=== PATIENT | male | born 1965 ===

== ENCOUNTER 2018-06-06 15:10 | Inpatient (IN) | payer MEDICAID ==
[2018-06-06 15:24] VITALS: BMI 26.6
[2018-06-06 17:08] LABS: BASO % 0.8 % (0.0-2.0); EOS # 0.1 K/uL (0.0-0.7); EOS % 2.1 % (0.0-4.0); HEMOGLOBIN 13.1 g/dL (12.0-18.0); LYMPH # 1.8 K/uL (1.0-4.3); LYMPH % 31.5 % (20.0-40.0); MEAN CELL VOLUME 91.2 fL (80.0-94.0); MEAN CORPUSCULAR HEMOGLOBIN 31.2 pg (27.0-31.0); MEAN CORPUSCULAR HGB CONC 34.2 g/dL (33.0-37.0); MEAN PLATELET VOLUME 7.9 fL (7.2-11.7); MONO # 0.4 K/uL (0.0-0.8); MONO % 6.1 % (0.0-10.0); NEUT # 3.5 K/uL (1.8-7.0); NEUT % 59.5 % (50.0-75.0); RBC 4.21 Mil/uL (4.40-5.90); RED CELL DISTRIBUTION WIDTH 13.8 % (11.5-14.5); WHITE BLOOD COUNT 5.9 K/uL (4.8-10.8)
[2018-06-06 17:09] LABS: SQUAMOUS EPITHIAL < 1 /hpf (0-5); URINE BACTERIA RARE (<OCC); URINE BILIRUBIN NEGATIVE (NEGATIVE); URINE BLOOD NEGATIVE (NEGATIVE); URINE CALCIUM OXALATE CRYSTALS OCC /hpf (<OCC); URINE CLARITY Clear (Clear); URINE COLOR Yellow (YELLOW); URINE GLUCOSE (UA) NORMAL (Normal); URINE LEUKOCYTE ESTERASE NEG Leu/uL (Negative); URINE PROTEIN NEGATIVE (NEGATIVE)
[2018-06-06 17:20] LABS: ALB/GLOB RATIO 1.4 (1.0-2.1); ALBUMIN 4.2 g/dL (3.5-5.0); ALT/SGPT 19 U/L (21-72); AST/SGOT 20 U/L (17-59); BLOOD UREA NITROGEN 18 mg/dL (9-20); GFR NON-AFRICAN AMERICAN > 60
[2018-06-06 17:36] LABS: BARBITURATES, UR NEGATIVE (NEGATIVE); BENZODIAZEPINES, UR NEGATIVE (NEGATIVE); PHENCYCLIDINE, UR NEGATIVE (NEGATIVE)
[2018-06-06 17:41] LABS: OPIATES, UR POSITIVE (NEGATIVE)
--- NOTE | 2018-06-06 18:13 | C.PDOC ---
History Of Present Illness 52 y/o male presents to ED requesting detox from heroin, admits to using 10-15 bags daily nasally. Patient has history of bipolar disorder and is non compliant with medication. Patient denies SI/HI, hallucinations or any other physical complaints at this time. Chief Complaint (Nursing): Substance Abuse History Per: Patient History/Exam Limitations: no limitations Onset/Duration Of Symptoms: Days Current Symptoms Are (Timing): Still Present Suicide/Self Injury Attempted (Context): None Modifying Factor(s): Other (heroin) Past Medical History Reviewed: Historical Data, Nursing Documentation, Vital Signs Vital Signs: Last Vital Signs Temp 97.3 F L 06/06/18 15:24 Pulse 63 06/06/18 15:24 Resp 18 06/06/18 15:24 BP 150/62 06/06/18 15:24 Pulse Ox 99 06/06/18 15:24 - Medical History PMH: Asthma Surgical History: No Surg Hx Family History: States: No Known Family Hx - Social History Hx Alcohol Use: Yes Hx Substance Use: Yes (heroin) - Immunization History Hx Tetanus Toxoid Vaccination: No Hx Influenza Vaccination: No Review Of Systems Constitutional: Negative for: Fever, Chills Cardiovascular: Negative for: Chest Pain Respiratory: Negative for: Cough Gastrointestinal: Negative for: Nausea, Vomiting Psych: Positive for: Other (substance abuse). Negative for: Depression, Suicidal ideation Physical Exam - Physical Exam Appears: Non-toxic, No Acute Distress Skin: Warm, Dry, No Rash Head: Atraumatic, Normacephalic Eye(s): bilateral: Normal Inspection Oral Mucosa: Moist Neck: Normal ROM, Supple Cardiovascular: Rhythm Regular Respiratory: Normal Breath Sounds, No Rales, No Rhonchi, No Wheezing Gastrointestinal/Abdominal: Soft, No Tenderness, No Guarding, No Rebound Neurological/Psych: Oriented x3, Normal Speech, Normal Cognition ED Course And Treatment - Laboratory Results Result Diagrams: 06/06/18 17:01 06/06/18 17:01 O2 Sat by Pulse Oximetry: 99 (RA) Pulse Ox Interpretation: Normal Progress Note: Patient medically cleared for detox. Disposition - Disposition Disposition Time: 19:00 Condition: STABLE Forms: [facility] (Luxembourgish) - Clinical Impression Clinical Impression: Drug dependence, Drug abuse - Scribe Statement The provider has reviewed the documentation as recorded by the Scribtejas Damian All medical record entries made by the Scribe were at my direction and personally dictated by me. I have reviewed the chart and agree that the record accurately reflects my personal performance of the history, physical exam, medical decision making, and the department course for this patient. I have also personally directed, reviewed, and agree with the discharge instructions and disposition.
--- NOTE | 2018-06-06 21:07 | PCM.BM ---
<ShonJaci - Last Filed: 06/06/18 21:56> Treatment Plan Problems - Problems identified on initial assessmt Ineffective Health Maintenance Date Initiated: 06/06/18 Time Initiated: 21:07 Assessment reference: NA Status: Active Treatment assets and liabiliti Patient Assests: cooperative, ADL independent, negotiates basic needs, cognitively intact Patient Liabilities: substance abuse (Opiates , cocaine) - Milieu Protocol Maintain good personal hygiene: daily Encourage regular showers, daily Remind patient to perform daily oral care, daily Assist patient to perform ADL's Conduct patient checks and document Observation sheet: Q15 minutes Maintain personal safety: every shift Educate patient to report safety concerns to staff, every shift Monitor environment for contraband/sharps Medication safety: Monitor for expected outcome, potential side effects: every shift, Assess barriers to learning: every shift, Assess readiness for medication education: every shift <Karla Chavez - Last Filed: 06/07/18 11:07> Treatment Plan Problems - Problems identified on initial assessmt Ineffective Health Maintenance Date Initiated: 06/06/18 Time Initiated: 21:07 Assessment reference: NA Status: Active Potential for opiate withdrawal Date Initiated: 06/06/18 Time Initiated: 21:07 Assessment reference: NA Status: Active Family Contact Family involvement: No known Family/SO - Goals for Treatment Patient goals for treatment: Complete detox and transition to inpatient rehab. Discharge/Continuing Care - Education Needs Education Needs: Patient Medication, Patient Diagnosis/Disease Process, Patient Coping Skills, Patient Anger Management skills, Patient Placement options, Patient Community resources, Patient Other (mental health/meds stabilization) - Discharge Discharge Criteria: Ability to care for self, No longer exhibiting s/s of withdrawal, Reduction of target symptoms Discharge to:: Substance Abuse Rehab - Treatment Team Participation Patient/Family/SO Statement: 06/07/18 11:07 "I wanna go to an inpatient program. I gotta stop this..." Discussed with Family/SO: No Was Patient/Family/SO present at Treatment Team Meeting: Yes
--- NOTE | 2018-06-07 14:07 | PCM.PSYCH ---
Initial Psychiatric Evaluation - Initial Psychiatric Evaluation Type of Admission: Voluntary Legal Status: Capacity History of Present Illness and Precipitating Events: Patient seen, chart reviewed, case discussed The patient is a single, unemployed, homeless male with no children who lives in a longterm. The patient has been unemployed for a couple years, and has been boogie-handling. The patient has been sniffing 10-15 bags of heroin per day for the past 20+ years, with his last use yesterday 2 pm. The patient has been sniffing 5 bottles of cocaine a couple times per week for the past 10 years. The patient smokes marijuana about once a month and smokes 8 cigarettes per day for the past 41 years, but denies any history of alcohol or other drug use. The patient has never been to detox or rehab in the past. The patients brother and nephew have a history of alcohol and pill abuse. The patient states that he has been diagnosed with Bipolar or Schizoaffective d/o. The patient has been hearing voices on and off for a long time telling him to give up and kills himself, last heard voices recently. The patient feels like people are after him and following him but doesnt ever see anyone. He is aware that these are symptoms and not real. Past Psych History: As above - The patient has been hospitalized for psychiatric problems many times in the past, with the last a couple months ago. The patient states that his symptoms disappear when he is taking his medications when he is in the hospital. The patient states that he currently depressed but denies suicidal ideations. The patient has attempted suicide once 6 years ago when he intentionally overdosed. Past Medical History: Asthma Family Psych History: Brother has Bipolar Disorder and alcohol and some pill dependence. Current Medications: Active Medications Generic Name Dose Route Start Last Admin Trade Name Freq PRN Reason Stop Dose Admin Acetaminophen 650 mg 06/07/18 00:40 Tylenol 325mg Tab PO Q6 PRN Pain, moderate (4-7) Aripiprazole 5 mg 06/07/18 10:30 06/07/18 10:53 Abilify PO 5 mg DAILY HARRY Administration Dicyclomine HCl 10 mg 06/07/18 08:52 Bentyl PO Q6 PRN Muscle spasm Escitalopram Oxalate 5 mg 06/07/18 10:30 06/07/18 10:53 Lexapro PO 5 mg DAILY HARRY Administration Ibuprofen 600 mg 06/06/18 22:10 06/06/18 22:22 Motrin Tab PO 600 mg Q6 PRN Administration Pain Influenza Virus Vaccine 60 mcg 06/08/18 09:00 Fluzone Quad [id number] IM 06/08/18 09:01 .ONCE ONE Methadone HCl 15 mg 06/07/18 10:00 06/07/18 10:15 Methadone PO 06/10/18 09:59 15 mg Q24H HARRY Administration Taper Ondansetron HCl 4 mg 06/07/18 08:51 06/07/18 10:16 Zofran Odt PO 4 mg Q6H PRN Administration Nausea/Vomiting Pneumococcal Polyvalent Vaccine 0.5 ml 06/08/18 09:00 Pneumovax 23 Vaccine IM 06/08/18 09:01 .ONCE ONE Quetiapine Fumarate 50 mg 06/07/18 22:00 Seroquel PO HS HARRY Past Psychiatric History - Past Psychiatric History Previous Treatment History: Intensive Outpatient Pertinent Medical Hx (Current Medical&Sleep Prob, Allergies): Allergies Allergy/AdvReac Type Severity Reaction Status Date / Time No Known Allergies Allergy Verified 06/06/18 15:23 No Known Home Med 06/06/18 Review of Systems - Psychiatric Psychiatric: Abnormal Sleep Pattern, Anhedonia, Anxiety, Auditory Hallucinations, Depression, Difficulty Concentrating, Hallucinations, Irritability, Mood Swings, Paranoia. absent: Homicidal Ideation, Suicidal Ideation Mental Status Examination - Personal Presentation Personal Presentation: Looks stated age - Affect Affect: Constricted - Motor Activity Motor Activity: Calm - Reliability in Providing Information Reliability in Providing Information: Good - Speech Speech: Organized - Mood Mood: Depressed, Anxious - Formal Thought Process Formal Thought Process: Hallucinations, Paranoia - Cognitive Functions Orientation: Person, Place, Situation Sensorium: Alert Attention/Concentration: Easily distracted Estimate of Intelligence: Average Judgement: Intact, as evidence by: Insight regarding need for hospitalization Memory: Recent intact, as evidence by: Ability to recall events of the day, Remote intact, as evidenced by: Abilit to recall sig. life events - Risk Risk: Withdrawal, Diminished functioning - Strength & Assets Inventory Strength & Assets Inventory: Cooperative - Limitations Limitations: Living alone DSM 5 DX - DSM 5 DSM 5 Diagnosis: Opioid withdrawal Cocaine withdrawal Opioid use d/osevere Cocaine use d/osevere Schizoaffective Disorder - unspecified - Recommended/Plan of Treatment Treatment Recommendations and Plan of Treatment: Taper with Methadone Gabapentin for augmentation if needed Lexapro and abilify for schizoaffective d/o As needed medication All risks, benefits and alternatives of the meds discussed and the patient agreed and understood Attend groups and activities Supportive therapy and psychoeducation MA for abstinence CBT for relapse prevention Encourage MAT Refer to rehab or IOP, and self-help groups Teach healthy lifestyle methods, i.e. diet, exercise, meditation Smoking cessation with MA Nicotine patch if needed 35 min Projected ELOS: 4 days - Smoking Cessation Smoking Cessation Initiated: Yes
[2018-06-08] MEDS ORDERED: Pneumococcal 23-Valent Vaccine IM ONE (09:00)
[2018-06-08] MEDS ORDERED: Influenza Vaccine 60 MCG/0.5 ML SYR (3 yr & up) IM ONE (09:00)
--- NOTE | 2018-06-09 23:57 | PCM.PYCHPN ---
Psychiatric Progress Note - Psychiatric Progress Note Patient seen today, length of contact: 16 min Patient Chief Complaint: "I don't feel well" Problems Identified/Issues Discussed: The pt is seen, chart reviewed, case discussed with staff. Support and psychoeducation given No SEs from medications, risks discussed. After care discussed - He was referred to [facility] but no one called back yet Meanwhile he says he feels depressed and at times suicidal He still on and off hears voices to tell him to kill self He doesn't feel safe leaving the hospital Medication Change: Yes (meds adjusted) Medical Record Reviewed: Yes Mental Status Examination - Cognitive Function Orientation: Person, Place, Situation Memory: Impaired Attention: Poor Concentration: Poor Association: WNL Fund of Knowledge: Poor - Mood Mood: Depressed, Anxious - Affect Affect: Constricted - Speech Speech: Appropriate - Formal Thought Process Formal Thought Process: Hallucinations, Paranoia - Suicidal Ideation Suicidal Ideation: No - Homicidal Ideation Homicidal Ideation: No Goal/Treatment Plan - Goal/Treatment Plan Need for Continued Stay: Severe depression anxiety, Discharge may exacerbated symptoms, Severe functional impairment Progress Toward Problem(s) and Goals/Treatment Plan: Taper with Methadone Gabapentin for augmentation if needed Lexapro and abilify for schizoaffective d/o As needed medication All risks, benefits and alternatives of the meds discussed and the patient agreed and understood Attend groups and activities Supportive therapy and psychoeducation [place] for abstinence CBT for relapse prevention Encourage MAT Refer to rehab or IOP, and self-help groups Teach healthy lifestyle methods, i.e. diet, exercise, meditation Smoking cessation with MS Nicotine patch if needed Transfer to 5-E Pt agreed
--- NOTE | 2018-06-09 23:59 | PCM.PYCHPN ---
Psychiatric Progress Note - Psychiatric Progress Note Patient seen today, length of contact: 15 min Patient Chief Complaint: "I'm not good" Problems Identified/Issues Discussed: The pt is seen, chart reviewed, case discussed with staff. The pt is compliant with medications and reports no side-effects. Symptoms are improving but needs more time to stabilize. Pt attends groups and activities. Support given, psycho-education provided. After care discussed. Straight and Narrow Medication Change: Yes (meds adjusted) Medical Record Reviewed: Yes Mental Status Examination - Cognitive Function Orientation: Person, Place, Situation Memory: Impaired Attention: Poor Concentration: Poor Association: WNL Fund of Knowledge: Poor - Mood Mood: Depressed, Anxious - Affect Affect: Constricted - Speech Speech: Appropriate - Formal Thought Process Formal Thought Process: Hallucinations, Paranoia - Suicidal Ideation Suicidal Ideation: No - Homicidal Ideation Homicidal Ideation: No Goal/Treatment Plan - Goal/Treatment Plan Need for Continued Stay: Severe depression anxiety, Discharge may exacerbated symptoms, Severe functional impairment Progress Toward Problem(s) and Goals/Treatment Plan: Taper with Methadone Gabapentin for augmentation if needed Lexapro and abilify for schizoaffective d/o As needed medication All risks, benefits and alternatives of the meds discussed and the patient agreed and understood Attend groups and activities Supportive therapy and psychoeducation [place] for abstinence CBT for relapse prevention Encourage MAT Refer to rehab or IOP, and self-help groups Teach healthy lifestyle methods, i.e. diet, exercise, meditation Smoking cessation with [place] Nicotine patch if needed
--- NOTE | 2018-06-10 08:20 | PCM.PYCHPN ---
Psychiatric Progress Note - Psychiatric Progress Note Patient seen today, length of contact: 15 min Medication Change: Yes (meds adjusted) Medical Record Reviewed: Yes Mental Status Examination - Cognitive Function Orientation: Person, Place, Situation Memory: Impaired Attention: Poor Concentration: Poor Association: WNL Fund of Knowledge: Poor - Mood Mood: Depressed, Anxious - Affect Affect: Constricted - Speech Speech: Appropriate - Formal Thought Process Formal Thought Process: Hallucinations, Paranoia - Suicidal Ideation Suicidal Ideation: No - Homicidal Ideation Homicidal Ideation: No Goal/Treatment Plan - Goal/Treatment Plan Need for Continued Stay: Severe depression anxiety, Discharge may exacerbated symptoms, Severe functional impairment
[2018-06-10] MEDS ORDERED: Albuterol HFA 90 mcg/actuation (8 g) INH PRN (17:14)
[2018-06-11 06:40] VITALS: O2SAT 99
--- NOTE | 2018-06-12 14:50 | PCM.PYCHPN ---
Psychiatric Progress Note - Psychiatric Progress Note Patient seen today, length of contact: 15 min Patient Chief Complaint: "I'm a little better" Problems Identified/Issues Discussed: The pt is seen, chart reviewed, case discussed with staff. Support and psychoeducation given, CBT and [place] used briefly No new symptoms reported, improving slowly and needs more time No SEs from medications, risks discussed. After care discussed- now open to all rehab options Medication Change: Yes (meds adjusted) Medical Record Reviewed: Yes Mental Status Examination - Cognitive Function Orientation: Person, Place, Situation Memory: Impaired Attention: Poor Concentration: Poor Association: WNL Fund of Knowledge: Poor - Mood Mood: Depressed, Anxious - Affect Affect: Constricted - Speech Speech: Appropriate - Formal Thought Process Formal Thought Process: Hallucinations, Paranoia - Suicidal Ideation Suicidal Ideation: No - Homicidal Ideation Homicidal Ideation: No Goal/Treatment Plan - Goal/Treatment Plan Need for Continued Stay: Severe depression anxiety, Discharge may exacerbated symptoms, Severe functional impairment Progress Toward Problem(s) and Goals/Treatment Plan: Taper with Methadone Gabapentin for augmentation if needed Lexapro and abilify for schizoaffective d/o As needed medication All risks, benefits and alternatives of the meds discussed and the patient agreed and understood Attend groups and activities Supportive therapy and psychoeducation [place] for abstinence CBT for relapse prevention Encourage MAT Refer to rehab or IOP, and self-help groups Teach healthy lifestyle methods, i.e. diet, exercise, meditation Smoking cessation with [place] Nicotine patch if needed
--- NOTE | 2018-06-13 11:31 | PCM.PYCHPN ---
Psychiatric Progress Note - Psychiatric Progress Note Patient seen today, length of contact: 15 min Patient Chief Complaint: "I'm anxious" Problems Identified/Issues Discussed: The pt is seen, chart reviewed, case discussed with staff. Support and psychoeducation given, CBT and [place] used briefly No new symptoms reported, improving slowly and needs more time No SEs from medications, risks discussed. After care discussed- now open to [employer] Psychotic sxs are under control Depression is less Medication Change: Yes (meds adjusted) Medical Record Reviewed: Yes Mental Status Examination - Cognitive Function Orientation: Person, Place, Situation Memory: Impaired Attention: Poor Concentration: Poor Association: WNL Fund of Knowledge: Poor - Mood Mood: Depressed, Anxious - Affect Affect: Constricted - Speech Speech: Appropriate - Formal Thought Process Formal Thought Process: Hallucinations, Paranoia - Suicidal Ideation Suicidal Ideation: No - Homicidal Ideation Homicidal Ideation: No Goal/Treatment Plan - Goal/Treatment Plan Need for Continued Stay: Severe depression anxiety, Discharge may exacerbated symptoms, Severe functional impairment Progress Toward Problem(s) and Goals/Treatment Plan: Taper with Methadone ended Gabapentin for augmentation if needed Lexapro and abilify for schizoaffective d/o As needed medication All risks, benefits and alternatives of the meds discussed and the patient agreed and understood Attend groups and activities Supportive therapy and psychoeducation [place] for abstinence CBT for relapse prevention Encourage MAT Refer to rehab or IOP, and self-help groups Teach healthy lifestyle methods, i.e. diet, exercise, meditation Smoking cessation with [place] Nicotine patch if needed Estimated Date of D/C: 06/14/18
[2018-06-14 06:49] VITALS: RESP 18
--- NOTE | 2018-06-14 11:01 | PCM.PYCHPN ---
Psychiatric Progress Note - Psychiatric Progress Note Patient seen today, length of contact: 15 min Patient Chief Complaint: "I'm OK" Problems Identified/Issues Discussed: The pt is seen, chart reviewed, case discussed with staff. Support and psychoeducation given. No new symptoms reported, improving slowly and needs more time No SEs from medications, risks discussed. He will go to a rehab Medication Change: Yes (meds adjusted) Medical Record Reviewed: Yes Mental Status Examination - Cognitive Function Orientation: Person, Place, Situation Memory: Impaired Attention: Poor Concentration: Poor Association: WNL Fund of Knowledge: Poor - Mood Mood: Depressed, Anxious - Affect Affect: Constricted - Speech Speech: Appropriate - Formal Thought Process Formal Thought Process: Hallucinations, Paranoia - Suicidal Ideation Suicidal Ideation: No - Homicidal Ideation Homicidal Ideation: No Goal/Treatment Plan - Goal/Treatment Plan Need for Continued Stay: Severe depression anxiety, Discharge may exacerbated symptoms, Severe functional impairment Progress Toward Problem(s) and Goals/Treatment Plan: Taper with Methadone ended Gabapentin for augmentation if needed Lexapro and abilify for schizoaffective d/o As needed medication All risks, benefits and alternatives of the meds discussed and the patient agreed and understood Attend groups and activities Supportive therapy and psychoeducation MA for abstinence CBT for relapse prevention Encourage MAT Refer to rehab or IOP, and self-help groups Teach healthy lifestyle methods, i.e. diet, exercise, meditation Smoking cessation with MA Nicotine patch if needed Estimated Date of D/C: 06/14/18
--- NOTE | 2018-06-15 14:22 | PCM.PYCHPN ---
Psychiatric Progress Note - Psychiatric Progress Note Patient seen today, length of contact: 15 min Patient Chief Complaint: "I'm anxious, I don't want to go out to the streets and relapse" Problems Identified/Issues Discussed: The pt is seen, chart reviewed, case discussed with staff. Support and psychoeducation given. Still depressed and anxious but better No SEs from medications, risks discussed. He will go to a rehab and likely [facility] in [place]. Paperwork sent, interview done Medication Change: Yes (meds adjusted) Medical Record Reviewed: Yes Mental Status Examination - Cognitive Function Orientation: Person, Place, Situation Memory: Impaired Attention: Poor Concentration: Poor Association: WNL Fund of Knowledge: Poor - Mood Mood: Depressed, Anxious - Affect Affect: Constricted - Speech Speech: Appropriate - Formal Thought Process Formal Thought Process: Hallucinations, Paranoia - Suicidal Ideation Suicidal Ideation: No - Homicidal Ideation Homicidal Ideation: No Goal/Treatment Plan - Goal/Treatment Plan Need for Continued Stay: Severe depression anxiety, Discharge may exacerbated symptoms, Severe functional impairment Progress Toward Problem(s) and Goals/Treatment Plan: Taper with Methadone ended Gabapentin for augmentation if needed Lexapro and abilify for schizoaffective d/o As needed medication All risks, benefits and alternatives of the meds discussed and the patient agreed and understood Attend groups and activities Supportive therapy and psychoeducation [place] for abstinence CBT for relapse prevention Encourage MAT Refer to rehab or IOP, and self-help groups Teach healthy lifestyle methods, i.e. diet, exercise, meditation Smoking cessation with [place] Nicotine patch if needed Estimated Date of D/C: 06/16/18 If changed, why: not ready to leave
[2018-06-15] MEDS ORDERED: Influenza Vaccine 60 MCG/0.5 ML SYR (3 yr & up) IM ONE (17:33)
[2018-06-15] MEDS ORDERED: Pneumococcal 23-Valent Vaccine IM ONE (17:33)
[2018-06-16 06:44] VITALS: BP 97/63; PULSE 73; TEMP 98.3
--- NOTE | 2018-06-16 12:09 | PCM.PYCHDC ---
Mental Status Examination - Mental Status Examination Orientation: Person Discharge Summary - Discharge Note Consultations:: List each consultation separately and include: 1. Reason for request. 2. Findings. 3. Follow-up Summary of Hospital Course include:: 1. Description of specific treatment plan utilized for patients during their course of treatmen. 2. Summarize the time- course for resolution of acute symptoms and/or regressed behaviors. 3. Describe issues identified and worked on during hospitalization. 4. Describe medication utilized. 5. Describe medical problems identified and treated. 6. Reassessment of suicide risk Summary of Hospital Course: Patient seen, chart reviewed, case discussed The patient is a single, unemployed, homeless male with no children who lives in a longterm. The patient has been unemployed for a couple years, and has been boogie-handling. The patient has been sniffing 10-15 bags of heroin per day for the past 20+ years, with his last use yesterday 2 pm. The patient has been sniffing 5 bottles of cocaine a couple times per week for the past 10 years. The patient smokes marijuana about once a month and smokes 8 cigarettes per day for the past 41 years, but denies any history of alcohol or other drug use. The patient has never been to detox or rehab in the past. The patients brother and nephew have a history of alcohol and pill abuse. The patient states that he has been diagnosed with Bipolar or Schizoaffective d/o. The patient has been hearing voices on and off for a long time telling him to give up and kills himself, last heard voices recently. The patient feels like people are after him and following him but doesnt ever see anyone. He is aware that these are symptoms and not real. Past Psych History: As above - The patient has been hospitalized for psychiatric problems many times in the past, with the last a couple months ago. The patient states that his symptoms disappear when he is taking his medications when he is in the hospital. The patient states that he currently depressed but denies suicidal ideations. The patient has attempted suicide once 6 years ago when he intentionally overdosed. Past Medical History: Asthma Family Psych History: Brother has Bipolar Disorder and alcohol and some pill dependence. He is not accepted to [facility] but will go to [facility] and f/u with [facility] after that. He is also on probation. - Final Diagnosis (DSM 5) Condition upon Discharge: FAIR Disposition: HOME/ ROUTINE Follow-up Treatment Plan: Taper with Methadone ended Gabapentin for augmentation if needed Lexapro and abilify for schizoaffective d/o As needed medication All risks, benefits and alternatives of the meds discussed and the patient agreed and understood Attend groups and activities Supportive therapy and psychoeducation RI for abstinence CBT for relapse prevention Encourage MAT Refer to rehab or IOP, and self-help groups Teach healthy lifestyle methods, i.e. diet, exercise, meditation Smoking cessation with RI Nicotine patch if needed Prescriptions/Medication Reconciliation: ARIPiprazole [Abilify] 20 mg PO QPM #30 tab Escitalopram [Lexapro] 10 mg PO DAILY #30 tab Mirtazapine [Remeron] 30 mg PO HS #30 tab traZODone [Desyrel] 100 mg PO HS PRN #30 tab PRN Reason: Sleep
== END 2018-06-16 12:15 | disposition home or self-care (01) | DRG 772 ==
LOC: C.ER 15:10 → C.7D 20:44 → C.5E 06-09 13:11
PROVIDERS: ATTEND Psychiatry & Neurology Psychiatry
PROC: HZ2ZZZZ Detoxification Services for Substance Abuse Treatment (ICD-10-PCS; principal; 2018-06-06)
PROC: HZ46ZZZ Group Counseling for Substance Abuse Treatment, Psychoeducation (ICD-10-PCS; 2018-06-06)
PROC: GZ3ZZZZ Medication Management (ICD-10-PCS; 2018-06-06)
PROC: HZ59ZZZ Individual Psychotherapy for Substance Abuse Treatment, Supportive (ICD-10-PCS; 2018-06-06)
DX: F11.23 Opioid dependence with withdrawal (principal); F25.9 Schizoaffective disorder, unspecified; F12.90 Cannabis use, unspecified, uncomplicated; F14.23 Cocaine dependence with withdrawal; F31.9 Bipolar disorder, unspecified; F17.210 Nicotine dependence, cigarettes, uncomplicated; J45.909 Unspecified asthma, uncomplicated; Z91.5 Personal history of self-harm; Z91.14 Patient's other noncompliance with medication regimen; Z59.0 Homelessness; Z81.8 Family history of other mental and behavioral disorders